=== PATIENT | male | born 1955 | race African-American/Black ===

== ENCOUNTER 2020-12-05 19:33 | Emergency (ER) | payer OTHER ==
[~2020-12-05] VITALS: Ht 177.8 cm; Wt 91.0 kg
[2020-12-05] MEDS ORDERED: SODIUM CHLORIDE 0.9% 1,000 ML IV ONE (20:00)
[2020-12-05] MEDS ORDERED: NALOXONE HCL 1 MG/ML 2ML VIAL IV ONE (20:15)
[2020-12-05 20:39] LABS: BASOPHILS % 1.2 % (0.0-2.0); EOSINOPHILS % 1.1 % (0.0-5.0); HEMATOCRIT. 41.6 % (42.0-52.0); HEMOGLOBIN. 14.2 g/dL (14.0-18.0); MEAN CORPUSCULAR HEMOGLOBIN 32.9 pg (28.0-32.0); MEAN CORPUSCULAR VOLUME 96.2 fL (80.0-94.0); MEAN PLATELET VOLUME 7.8 fl (7.4-10.4); MONOCYTES % 8.4 % (2.0-8.0); NEUTROPHILS % 54.3 % (40.0-76.0); PLATELET 297 x1000/uL (130-400); RED BLOOD CELL COUNT 4.32 mill/uL (4.7-6.1); RED CELL DISTRIBUTION WIDTH 12.6 % (11.6-14.6)
[2020-12-05 20:47] LABS: CHLORIDE 115 mEq/L (98-107)
[2020-12-05 20:49] LABS: PROTHROMBIN TIME 10.7 sec (9.6-11.0)
[2020-12-05 20:52] LABS: ETHANOL BLOOD 64 mg/dL
[2020-12-05 20:56] LABS: CREATINE KINASE 118 IU/L (39-308)
[2020-12-05 21:21] LABS: CLARITY URINE CLEAR (CLEAR); COLOR URINE YELLOW (YELLOW); KETONES URINE NEGATIVE (NEGATIVE); LEUKOCYTE ESTERASE URINE NEGATIVE (NEGATIVE); NITRITE URINE NEGATIVE (NEGATIVE); OCCULT BLOOD URINE 3+ (NEGATIVE); PH URINE 7.5 (4.5-8.0); PROTEIN URINE NEGATIVE (NEGATIVE); SPECIFIC GRAVITY URINE 1.005 (1.005-1.030); UROBILINOGEN URINE 0.2 E.U./dL (0.2-1.0)
[2020-12-05 21:37] LABS: *AMPHETAMINES SCREEN URINE NEGATIVE (NEGATIVE); *BARBITURATES SCREEN URINE NEGATIVE (NEGATIVE); *BENZODIAZEPINES SCREEN URINE NEGATIVE (NEGATIVE); *COCAINE SCREEN URINE NEGATIVE (NEGATIVE); CANNABINOID URINE SCREEN PRESUMTIVE POSITIVE (NEGATIVE); METHADONE URINE SCREEN NEGATIVE (NEGATIVE); OPIATES URINE SCREEN NEGATIVE (NEGATIVE); PHENCYCLIDINE URINE SCREEN PRESUMTIVE POSITIVE (NEGATIVE)
[2020-12-05 22:45] VITALS: BP 185/88
== END 2020-12-05 23:36 | disposition left against medical advice (07) ==
LOC: ER 19:33 → EDBD 19:33 → ER 23:36
DX: F10.129 Alcohol abuse with intoxication, unspecified (principal); I49.9 Cardiac arrhythmia, unspecified; Y90.3 Blood alcohol level of 60-79 mg/100 ml
CPT/HCPCS: 36415; 70450; 71045; 80053; 80305; 80307; 80320; 80329; 81003; 82140; 82550; 83690; 83880; 84443; 84484; 85025; 85610; 93005; 96361; 96374; 99291; J2310; J7030; Z7610; G0480